=== PATIENT | female | born 2000 | race Caucasian/White ===

== ENCOUNTER 2018-06-13 21:39 | Emergency (ER) | payer OTHER ==
--- NOTE | 2018-06-13 22:11 | EDPHY ---
H & P Stated Complaint: CORTES turned fainting, hit head, "passed out for 7 seconds" Time Seen by Provider: 06/13/18 22:02 HPI/ROS: HPI: This is a 18-year-old female who presents with Chief Complaint: CORTES turned fainting, hit head, "passed out for 7 seconds" Location: Head Quality: Fainted Duration: Prior to arrival Signs and Symptoms: no fever, no nausea, no vomiting, no photophobia, no noise sensitivity, no neck stiffness, no ear pain, no tinnitus, no nasal congestion, no sinus pressure, no weakness, no radiation, no aura Timing: Acute Severity: Moderate Context: Patient is a student at [employer]. She was in a dorm room studying with her friend and completing calculus to homework when she stared at her friend and then noted that her vision blacked out. Her friend at bedside reports that she fell towards the left side and he tried to catch her from hitting the floor. He broke her fall but she did hit her left temporal area of her head on the chair of a piano bench. Patient was"passed out for approximately 7 sec." She woke in it to her friend calling her name. There was no seizure activity, tongue biting, incontinence. She reports that she feels "fine" currently and only complains of a mild, dull headache at the point of impact with a small bump in the area. Not any blood thinners. Currently on menses day 5 of 7. Reports regular flow and not heavier menstruation from normal. Denies neck injury, nausea, vomiting, dizziness, amnesia. Patient reports that she has not drink enough fluids today. Modifying Factors: None Comment: ROS: A comprehensive 10 system review of systems is otherwise negative aside from elements mentioned in the history of present illness. MEDICAL/SURGICAL/SOCIAL HISTORY: Medical history: Generally healthy. Does not take any regular medications. Surgical history: Denies Social history: Originally from [place]. Nonsmoker. Family history noncontributory. CONSTITUTIONAL: Extremely well-appearing slightly anxious young adult white female, awake and alert, no obvious distress HEENT: Small contusion noted on the left mosque her a on our no active bleeding or laceration. normocephalic, PERRL, EOMI. Nares patent; no rhinorrhea ; no nasal mucosal edema. Tympanic membranes clear. Oropharynx clear, no exudate and moist pink mucosa. Airway patent. No lymphadenopathy. No meningismus. Cardiovascular: Normal S1/S2, regular rate, regular rhythm, without murmur rub or gallop. PULMONARY/CHEST: Symmetrical and nontender. Clear to auscultation bilaterally. Good air movement. No accessory muscle usage. ABDOMEN: Soft, nondistended, nontender, no rebound, no guarding, no peritoneal signs, no masses or organomegaly. No CVAT. EXTREMITIES: 2/2 pulses, strength 5/5, no deformities, no clubbing, no cyanosis or edema. NEUROLOGICAL: no focal neuro deficits. GCS 15. Speech clear. Normal cerebellar testing. Normal [id number] testing. Cranial nerves 2-12 grossly intact. SKIN: Warm and dry, no erythema. no rash. Good capillary refill. Source: Patient Exam Limitations: No limitations - Personal History LMP (Females 10-55): Now Current Tetanus Diphtheria and Acellular Pertussis (TDAP): Yes - Medical/Surgical History Hx Asthma: No Hx Chronic Respiratory Disease: No Hx Diabetes: No Hx Cardiac Disease: No Hx Renal Disease: No Hx Cirrhosis: No Hx Alcoholism: No Hx HIV/AIDS: No Hx Splenectomy or Spleen Trauma: No Other PMH: Denies - Social History Smoking Status: Never smoked Constitutional: Initial Vital Signs Temperature (C) 36.7 C 06/13/18 21:48 Heart Rate 87 06/13/18 21:48 Respiratory Rate 18 06/13/18 21:48 Blood Pressure 142/81 H 06/13/18 21:48 O2 Sat (%) 97 06/13/18 21:48 O2 Delivery Mode Room Air Allergies/Adverse Reactions: No Known Allergies Allergy (Unverified 06/13/18 21:51) Home Medications: Medication Instructions Recorded NK [No Known Home Meds] 06/13/18 Medical Decision Making ED Course/Re-evaluation: Vital signs reviewed and stable upon arrival. Placed on cafeteria monitor. EKG my read shows normal sinus rhythm with a rate of 64 beats per minute. IV access and laboratory studies obtained No signs of seizure activity/Hunt's palsy/temporal arteritis/arrhythmias 2320: Laboratory studies reviewed. No signs of leukocytosis/anemia/platelet dysfunction/DERICK/electrolyte imbalance/. This patient was seen under the supervision of my secondary supervising physician. I evaluated care for this patient independently. Discussed this patient with Dr. Aguirre who did not see the patient. Differential Diagnosis: Syncope including but not limited to vasovagal syncope, arrhythmia, dehydration , and blood loss. - Data Points Laboratory Results: Laboratory Results 06/13/18 22:30 06/13/18 22:30 06/13/18 06/13/18 06/13/18 22:30 22:30 22:30 WBC 8.80 10^3/uL 10^3/uL (3.80-9.50) RBC 4.80 10^6/uL 10^6/uL (4.18-5.33) Hgb 14.4 g/dL g/dL (12.6-16.3) Hct 42.2 % % (38.0-47.0) MCV 87.9 fL fL (81.5-99.8) MCH 30.0 pg pg (27.9-34.1) MCHC 34.1 g/dL g/dL (32.4-36.7) RDW 11.8 % % (11.5-15.2) Plt Count 373 10^3/uL 10^3/uL (150-400) MPV 10.7 fL fL (8.7-11.7) Neut % (Auto) 56.8 % % (39.3-74.2) Lymph % (Auto) 31.5 % % (15.0-45.0) [place] % (Auto) 10.2 % % (4.5-13.0) Eos % (Auto) 0.8 % % (0.6-7.6) Baso % (Auto) 0.2 % L % (0.3-1.7) Nucleat RBC Rel Count 0.0 % % (0.0-0.2) Absolute Neuts (auto) 5.00 10^3/uL 10^3/uL (1.70-6.50) Absolute Lymphs (auto) 2.77 10^3/uL 10^3/uL (1.00-3.00) Absolute Monos (auto) 0.90 10^3/uL H 10^3/uL (0.30-0.80) Absolute Eos (auto) 0.07 10^3/uL 10^3/uL (0.03-0.40) Absolute Basos (auto) 0.02 10^3/uL 10^3/uL (0.02-0.10) Absolute Nucleated RBC 0.00 10^3/uL 10^3/uL (0-0.01) Immature Gran % 0.5 % % (0.0-1.1) Immature Gran # 0.04 10^3/uL 10^3/uL (0.00-0.10) Sodium 139 mEq/L mEq/L (135-145) Potassium 4.7 mEq/L mEq/L (3.5-5.2) Chloride 105 mEq/L mEq/L (97-110) Carbon Dioxide 23 mEq/l mEq/l (22-31) Anion Gap 11 mEq/L mEq/L (6-14) BUN 15 mg/dL mg/dL (7-23) Creatinine 1.0 mg/dL mg/dL (0.6-1.0) Estimated GFR > 60 Glucose 118 mg/dL H mg/dL (70-100) Calcium 10.1 mg/dL mg/dL (8.5-10.4) Beta HCG, Qual NEGATIVE Medications Given: Discontinued Medications Sodium Chloride (Ns) 1,000 mls @ 0 mls/hr IV ONCE ONE; Wide Open PRN Reason: Protocol Stop: 06/13/18 22:18 Last Admin: 06/13/18 22:33 Dose: 1,000 mls Lorazepam (Ativan Injection) 1 mg IVP EDNOW ONE Stop: 06/13/18 22:18 Last Admin: 06/13/18 22:33 Dose: 1 mg Departure - Departure Disposition: Home, Routine, Self-Care Clinical Impression: Fainted Qualifiers: Syncope type: unspecified Qualified Code(s): R55 - Syncope and collapse Contusion of scalp Qualifiers: Encounter type: initial encounter Qualified Code(s): S00.03XA - Contusion of scalp, initial encounter Condition: Good Instructions: Syncope (ED) Additional Instructions: Rest as much as possible until you are feeling better. Consume a minimum of 8-10 glasses of water or electrolyte fluid replacement drinks that include Gatorade, Powerade, Pedialyte. Follow-up with PCP in the next 2-3 days. Return at once for any worsening symptoms or concerns. Take Tylenol 650 mg every 4 hours and/or Ibuprofen 600 mg every 8 hours with food as needed for pain/headache. If symptoms last longer than 1 week, please follow-up with Dr. Black in the [facility]ussion [facility]. Return to the ER immediately if you have progressive headaches, neurologic deficits, gait abnormality, visual disturbance, slurred speech, or any other symptom that concerns you. Referrals: MAYUR RODRIGUEZ [Other] - As per Instructions Leah Black MD [Medical Doctor] - As per Instructions [facility] [Clinic] - As per Instructions Stand Alone Forms: School Excuse
[2018-06-13] MEDS ORDERED: NS 1,000 ML IV ONE (22:17)
[2018-06-13] MEDS ORDERED: LORazepam 2 MG/ML INJ IVP ONE (22:17)
[2018-06-13 22:55] LABS: PLATELET COUNT 373 10^3/uL (150-400)
[2018-06-13 23:08] VITALS: BP 144/87
--- NOTE | 2018-06-14 21:16 | CPEKG ---
Test Reason : OPEN Blood Pressure : / mmHG Vent. Rate : 064 BPM Atrial Rate : 065 BPM P-R Int : 146 ms QRS Dur : 093 ms QT Int : 364 ms P-R-T Axes : 033 043 038 degrees QTc Int : 376 ms Sinus rhythm Confirmed by Nia Aguirre ([id number]) on 06/14/2018 9:15:51 PM Referred By: Confirmed By:Nia Aguirre
== END 2018-06-13 23:34 | disposition home or self-care (01) ==
DX: R55 Syncope and collapse (principal); W22.8XXA Striking against or struck by other objects, initial encounter; S00.03XA Contusion of scalp, initial encounter; E86.9 Volume depletion, unspecified; Y92.163 Bedroom in school dormitory as the place of occurrence of the external cause
CPT/HCPCS: 96374; J2060